=== PATIENT | female | born 1955 | race Caucasian/White ===

== ENCOUNTER 2024-07-03 07:57 | Inpatient (IN) | payer MEDICARE ==
[~2024-07-03] VITALS: Ht 165.1 cm; Wt 58.8 kg
[2024-07-03] MEDS ORDERED: DONE10TA90 PO (08:27)
[2024-07-03 08:59] LABS: BASO % 0.6 % (0.0-1.0); EOS % 0.4 % (0.0-3.0); HEMATOCRIT 39.4 % (36.0-47.0); HEMOGLOBIN 13.3 g/dl (12.0-15.5); MEAN CORPUSCULAR HEMOGLOBIN 31.4 pg (27.0-33.0); MEAN CORPUSCULAR HGB CONC 33.8 g/dl (32.0-36.5); MEAN CORPUSCULAR VOLUME 92.9 fl (80.0-96.0); MONO # 0.3 10^3/uL (0.0-0.8); MONO % 4.6 % (2.0-8.0); NEUTROPHILS # 5.4 10^3/uL (1.5-8.5); NEUTROPHILS % 79.1 % (36.0-66.0); PLATELET COUNT, AUTOMATED 183 10^3/uL (150-450); RED BLOOD COUNT 4.24 10^6/uL (4.00-5.40); WHITE BLOOD COUNT 6.8 10^3/uL (4.0-10.0)
[2024-07-03 09:18] LABS: BLOOD UREA NITROGEN 21 MG/DL (9-23); CALCIUM LEVEL 8.2 MG/DL (8.3-10.6); CARBON DIOXIDE LEVEL 26 MMOL/L (20-31); CHLORIDE LEVEL 106 MMOL/L (98-107); CREATININE FOR GFR 0.75 MG/DL (0.55-1.30); GLOMERULAR FILTRATION RATE > 60.0 (>45); GLUCOSE, FASTING 179 MG/DL (74-106); POTASSIUM SERUM 4.3 MMOL/L (3.5-5.1); SODIUM LEVEL 141 MMOL/L (136-145)
[2024-07-03] MEDS: APIXABAN 5 MG TAB (ELIQUIS) PO ONE (10:19)
[2024-07-03] MEDS: ACETAMINOPHEN 325 MG TAB PO PRN (12:02)
[2024-07-03 12:05] LABS: CHOLESTEROL LEVEL 240 MG/DL (<200); CHOLESTEROL RISK RATIO 3.04 (<5); HDL CHOLESTEROL 78.8 MG/DL (>40); LDL CHOLESTEROL 147.6 MG/DL (<100); NON-HDL-C 161.2 MG/DL; TRIGLYCERIDES LEVEL 68 MG/DL (<150)
[2024-07-03 12:12] LABS: HEMOGLOBIN A1c 5.6 % (4.0-6.0)
[2024-07-03 12:18] LABS: INR 1.18; PARTIAL THROMBOPLASTIN TIME 24.2 SECONDS (24.8-34.2); PROTHROMBIN TIME 15.3 SECONDS (12.5-14.5)
[2024-07-03] MEDS ORDERED: HOME MED LIST COMPLETE! XX SCH (13:10)
[2024-07-03] MEDS: METOPROLOL TART 25 MG TABLET PO SCH (14:16)
[2024-07-03] MEDS: APIXABAN 5 MG TAB (ELIQUIS) PO SCH (21:42)
[2024-07-04 04:55] VITALS: BP 119/78; TEMP 97.7; O2SAT 100
[2024-07-04 05:10] VITALS: BP 119/78
[2024-07-04 06:36] LABS: HEMATOCRIT 39.2 % (36.0-47.0); HEMOGLOBIN 13.3 g/dl (12.0-15.5); MEAN CORPUSCULAR HGB CONC 33.9 g/dl (32.0-36.5); MEAN CORPUSCULAR VOLUME 91.4 fl (80.0-96.0); PLATELET COUNT, AUTOMATED 211 10^3/uL (150-450); RED BLOOD COUNT 4.29 10^6/uL (4.00-5.40); WHITE BLOOD COUNT 7.3 10^3/uL (4.0-10.0)
[2024-07-04 07:06] LABS: ALBUMIN 3.3 G/DL (3.2-5.2); ALKALINE PHOSPHATASE 66 U/L (35-104); ALT/SGPT 30 U/L (7.0-40); AST/SGOT 20 U/L (<34); BILIRUBIN,TOTAL 0.7 MG/DL (0.3-1.2); BLOOD UREA NITROGEN 17 MG/DL (9-23); CALCIUM LEVEL 8.3 MG/DL (8.3-10.6); CARBON DIOXIDE LEVEL 24 MMOL/L (20-31); CHLORIDE LEVEL 109 MMOL/L (98-107); CREATININE FOR GFR 0.71 MG/DL (0.55-1.30); GLOMERULAR FILTRATION RATE > 60.0 (>45); GLUCOSE, FASTING 94 MG/DL (74-106); POTASSIUM SERUM 3.8 MMOL/L (3.5-5.1); SODIUM LEVEL 143 MMOL/L (136-145); TOTAL PROTEIN 6.1 G/DL (5.7-8.2)
[2024-07-04 11:49] VITALS: BP 100/63; TEMP 98.1; O2SAT 98
[2024-07-04] MEDS ORDERED: ELIQ5TAB PO (12:23)
[2024-07-04 13:45] LABS: KETONE, URINE AUTO RFX NEGATIVE (NEGATIVE); LEUKOCYTE ESTERASE UR AUTO RFX NEGATIVE (NEGATIVE); MUCUS, URINE RFX SMALL (NEGATIVE); NITRITE, URINE AUTO RFX NEGATIVE (NEGATIVE); RBC, URINE AUTO RFX 0 /HPF (0-3); SQUAM EPITHELIAL CELL UR AURFX 0 /HPF (0-6); WBC, URINE AUTO RFX 1 /HPF (0-3)
[2024-07-04] MEDS ORDERED: METO1TAB87 PO (14:30)
[2024-07-04 14:32] VITALS: BP 112/67
[2024-07-04] MEDS ORDERED: METOPROLOL TART 12.5 MG PER 1/2 TAB PO SCH (21:00)
== END 2024-07-04 16:37 | disposition home or self-care (01) | DRG 310 ==
LOC: M ED 07:57 → EDBD 07:57 → M ED INP 11:24 → M MSPAV 07-04 04:47
PROVIDERS: ADMIT Internal Medicine; ATTEND Internal Medicine
DX: I48.91 Unspecified atrial fibrillation (principal); F03.90 Unspecified dementia, unspecified severity, without behavioral disturbance, psychotic disturbance, mood disturbance, and anxiety; R55 Syncope and collapse; R73.9 Hyperglycemia, unspecified; B00.9 Herpesviral infection, unspecified; Z63.79 Other stressful life events affecting family and household; Z79.899 Other long term (current) drug therapy; Z91.048 Other nonmedicinal substance allergy status